=== PATIENT | male | born 1950 | race Caucasian/White ===

== ENCOUNTER 2017-01-24 08:35 | Emergency (ER) | payer OTHER ==
--- NOTE | ~2017-01-24 | CT2 ---
[facility] A Service [facility] RADIOLOGY TEXT RESULTS PATIENT: MATILDA METZ LOCATION: SED : 50 UNIT #: [id number] AGE: [address]: Ori Ortiz MD SEX: M ORDER DR: [id number] [place] [id number] E MR#: [id number] Acc #: [id number] NAME: MATILDA METZ : 1950 SEX: M STUDY DATE/TIME: 01/24/2017 11:17 UNIT: SED ROOM: STUDY DESCRIPTION: CT Abd and Pelv W Cont Attending Physician: Ori Ortiz M.D. Ordering Physician: Ori Ortiz M.D. Primary Care Physician: Primary Care Physician No MEDICAL IMAGING REPORT This report is preliminary unless electronic signature is present. EXAM CT abdomen and pelvis with contrast INDICATION Intermittent abdominal pain and nausea since 02:00 a.m. this morning. PROCEDURE Contrast-enhanced CT of the abdomen and pelvis. 100 mL of Isovue-370. COMPARISON None TECHNIQUE This CT exam was performed with one or more of the following radiation dose reduction techniques: automatic exposure control, adjustment of mA and/or kV according to patient size, and iterative reconstruction. FINDINGS ABDOMEN WITH CONTRAST: Included lung bases are clear. The liver is borderline enlarged at 19.6 cm. Spleen, pancreas unremarkable. There are a few gas containing stones in the gallbladder but no evidence for active inflammation by CT. There is a 10.0 mm indeterminate lesion in the lateral left yoj-wz-kmchh kidney. There is a 2.7 cm indeterminate right adrenal nodule. The bowel loops are nondilated. Appendix is normal. PELVIS WITH CONTRAST: No pelvic mass or fluid. No aggressive appearing bone lesion. IMPRESSION 1. No definite acute findings. 2. Borderline hepatomegaly. [facility] A Service [facility] RADIOLOGY TEXT RESULTS PATIENT: MATILDA METZ LOCATION: SED : 50 UNIT #: [id number] AGE: [address]: Ori Ortiz MD SEX: M ORDER DR: 3. Uncomplicated cholelithiasis by CT. If there is persistent clinical concern, right upper quadrant ultrasound may be helpful. 4. Indeterminate right adrenal nodule and left renal lesion. Recommend evaluation with either abdominal MRI or multiphase CT. If CT is pursued, adrenal protocol, as well as renal images should be performed. 5. Not mentioned above there is a fat-containing midline hernia in the upper abdomen that measures 6.9 cm in diameter with a neck of 1.7 cm. Dictated by... Branden Fan M.D. THIS IS AN ELECTRONICALLY VERIFIED REPORT Branden Fan M.D. at 01/25/2017 10:02 AM PAUL/andi TD: 01/24/2017 14:42 JOB #: [id number] MEDICAL IMAGING REPORT Page 1 of 1
[~2017-01-24 08:35] MED LIST: AMLODIPINE BESYL5 MG PO; BYSTOLIC10 MG PO; FISH OIL 1,0001 CAP PO; IBUPROFEN400 MG PO; IBUPROFEN800 MG PO; LIPITOR; LIPITOR PO; LISINOPRIL; LISINOPRIL PO; LOSARTAN-HCTZ1 EAC1 PO; MAXIDE; MAXZIDE-25 MG1 UDTAB; MEVACOR40 MG PO; OMEPRAZOLE20 M1 PO; PHENERGAN W/CO120 ML PO; TRICOR; TRICOR PO; ZITHROMAX PO
[2017-01-24 09:02] LABS: URINE SOURCE CLEAN CATCH
[2017-01-24 09:16] LABS: URINE APPEARANCE CLEAR; URINE BILIRUBIN NEG (NEG); URINE BLOOD TRACE-INTACT (NEG); URINE COLOR YELLOW; URINE GLUCOSE NEG (NORM); URINE KETONE NEG (NEG); URINE LEUKOCYTE ESTERASE NEG (NEG); URINE NITRATE NEG (NEG); URINE PROTEIN 1+ (NEG); URINE SPECIFIC GRAVITY 1.015 (1.003-1.035)
[2017-01-24 09:32] LABS: MICRO INDICATED? YES
[2017-01-24 10:03] LABS: CULTURE INDICATED? YES; URINE BACTERIA 1+ (NEG); URINE WBC 0-2 /[HPF] (0-5)
[2017-01-24 10:04] LABS: URINE SQUAMOUS EPITHELIAL CELL FEW /[HPF]
[2017-01-24 10:05] LABS: URINE MUCUS PRESENT
[2017-01-24 10:30] LABS: BASOPHIL# 0.1 X10e3 (0-0.3); BASOPHIL% 0.5 % (0-2.5); DIFF IND NO; EOSINOPHIL# 0.1 X10e3 (0-0.7); EOSINOPHIL% 0.6 % (0.0-7.0); HEMATOCRIT 42.4 % (38.0-50.0); LYMPHOCYTE# 1.2 X10e3 (1.0-3.5); LYMPHOCYTE% 7.5 % (17.0-45.0); MEAN CELL VOLUME 87.4 FL (83-96); MEAN CORPUSCULAR HGB CONC 33.1 g/dL (30-36); MEAN PLATELET VOLUME 8.1 FL (6.5-11.5); MONOCYTE# 1.1 X10e3 (0-1.0); MONOCYTE% 7.2 % (3.0-12.0); NEUTROPHIL# 12.9 X10e3 (1.5-7.1); NEUTROPHIL% 84.2 % (40-75); PLATELET COUNT 281 X10e3 (140-420); RED BLOOD COUNT 4.85 X10e (3.90-5.60); WHITE BLOOD COUNT 15.3 X10e3 (4.0-10.5)
[2017-01-24 10:47] LABS: ALBUMIN SERUM 3.7 g/dL (3.5-5.0); ALKALINE PHOSPHATASE 77 U/L (32-92); ALT (SGPT) 23 U/L (10-40); AMYLASE 24 U/L (0-46); AST (SGOT) 21 U/L (10-42); BILIRUBIN, DIRECT 0.1 mg/dL (0.0-0.2); BILIRUBIN,INDIRECT 0.3 mg/dL (0.0-0.9); BILIRUBIN,TOTAL 0.4 mg/dL (0.2-2.0); BLOOD UREA NITROGEN 16 mg/dL (9-23); BUN/CREATININE RATIO 22.85; CALCIUM SERUM 8.7 mg/dL (8.4-10.2); CARBON DIOXIDE 26 mmol/L (22-31); CHLORIDE 96 mmol/L (100-111); CREATININE SERUM 0.7 mg/dL (0.6-1.4); GLOM FILT RATE Estimated ABOVE60 mL/min (>60); GLUCOSE FASTING 145 mg/dL (70-110); LIPASE 24 U/L (22-51); PROTEIN TOTAL SERUM 7.3 g/dL (6.0-8.3); SODIUM 132 mmol/L (135-145)
== END 2017-01-24 12:22 | disposition home or self-care (01) ==
LOC: SED 08:35
PROVIDERS: Emergency Medicine
DX: E27.8 Other specified disorders of adrenal gland (principal); E78.5 Hyperlipidemia, unspecified; I10 Essential (primary) hypertension; Z79.899 Other long term (current) drug therapy
CPT/HCPCS: 36415; 74177; 80048; 80076; 81003; 82150; 83690; 85025; 87086; 96361; 96374; 99284; J2405; Q9967

== ENCOUNTER 2017-01-26 06:12 | Emergency (ER) | payer OTHER ==
--- NOTE | ~2017-01-26 | US67 ---
[facility] A Service of [facility] RADIOLOGY TEXT RESULTS PATIENT: MATILDA METZ LOCATION: [facility] : 50 UNIT #: [id number] AGE: [address]: Frank De Los Santos MD SEX: M ORDER DR: [id number] [facility] [address] [place], [place] [address] [id number] E MR#: [id number] Acc #: [id number] NAME: MATILDA METZ : 1950 SEX: M STUDY DATE/TIME: 01/26/2017 7:40 UNIT: [facility] ROOM: STUDY DESCRIPTION: US Gallbladder Attending Physician: Frank De Los Santos M.D. Ordering Physician: Ed Doctor [id number] [facility] Primary Care Physician: Primary Care Physician No MEDICAL IMAGING REPORT This report is preliminary unless electronic signature is present EXAM Gallbladder ultrasound 01/26/2017 INDICATIONS Abdominal pain 3 days. History of colon cancer with resection in 1195. Hypertension, hyperlipidemia. TECHNIQUE Sonographic imaging of the gallbladder was performed. Correlation is made with CT 01/24/2017. FINDINGS Pancreas obscured by bowel gas and not seen or evaluated. The liver echotexture is coarsened and liver measures 18 cm long axis. There is no ascites, focal liver mass or intrahepatic ductal dilatation. Probable at least mild fatty infiltration of the liver. Right kidney nonobstructed measuring 12.1 cm long axis. Extrahepatic common bile duct measures 5-6 mm, within the normal range. The gallbladder demonstrates cholelithiasis but no distinct wall thickening or pericholecystic fluid. No sonographic Lopez's sign was described by the technologist. Incidental lower pole renal cyst on the right measures 2.7 cm corresponding to a cyst in the lower pole right kidney on CT. IMPRESSION 1. Uncomplicated cholelithiasis. No intra or extrahepatic ductal dilatation. 2. Coarsened hepatic echotexture with imaging features suggestive of mild fatty infiltration. 3. Pancreas not visualized or assessed. 4. Incidental right renal cyst. Dictated by... Juan Finch M.D. [facility] A Service of [facility] RADIOLOGY TEXT RESULTS PATIENT: MATILDA METZ LOCATION: [facility] : [birth year] UNIT #: [id number] AGE: [address]: Frank De Los Santos MD SEX: M ORDER DR: THIS IS AN ELECTRONICALLY VERIFIED REPORT Juan Finch M.D. at 01/26/2017 3:13 PM Elizabeth TD: 01/26/2017 14:19 JOB #: [id number] MEDICAL IMAGING REPORT Page 1 of 1 COPY
[2017-01-26 06:03] LABS: BASOPHIL% 0.2 % (0-2.5); EOSINOPHIL% 0.4 % (0.0-7.0); HEMATOCRIT 39.5 % (38.0-50.0); LYMPHOCYTE# 1.5 X10e3 (1.0-3.5); LYMPHOCYTE% 11.4 % (17.0-45.0); MEAN CELL VOLUME 87.7 FL (83-96); MEAN CORPUSCULAR HEMOGLOBIN 28.8 PG (28-34); MEAN CORPUSCULAR HGB CONC 32.9 g/dL (30-36); MEAN PLATELET VOLUME 7.7 FL (6.5-11.5); MONOCYTE# 1.7 X10e3 (0-1.0); MONOCYTE% 12.4 % (3.0-12.0); NEUTROPHIL# 10.1 X10e3 (1.5-7.1); NEUTROPHIL% 75.6 % (40-75); PLATELET COUNT 257 X10e3 (140-420); RED CELL DISTRIBUTION WIDTH 15.3 % (11.0-15.5); WHITE BLOOD COUNT 13.4 X10e3 (4.0-10.5)
[2017-01-26 06:08] LABS: DIFF IND NO
[2017-01-26 06:32] LABS: ALBUMIN SERUM 3.6 g/dL (3.5-5.0); ALKALINE PHOSPHATASE 68 U/L (32-92); ALT (SGPT) 19 U/L (10-40); AMYLASE 15 U/L (0-46); AST (SGOT) 14 U/L (10-42); BILIRUBIN, DIRECT 0.2 mg/dL (0.0-0.2); BILIRUBIN,INDIRECT 1.2 mg/dL (0.0-0.9); BILIRUBIN,TOTAL 1.4 mg/dL (0.2-2.0); BLOOD UREA NITROGEN 15 mg/dL (9-23); BUN/CREATININE RATIO 18.75; CALCIUM SERUM 8.6 mg/dL (8.4-10.2); CARBON DIOXIDE 30 mmol/L (22-31); CHLORIDE 99 mmol/L (100-111); CREATININE SERUM 0.8 mg/dL (0.6-1.4); GLOM FILT RATE Estimated ABOVE60 mL/min (>60); GLUCOSE FASTING 111 mg/dL (70-110); LIPASE 17 U/L (22-51); POTASSIUM 3.2 mmol/L (3.5-5.1); PROTEIN TOTAL SERUM 7.3 g/dL (6.0-8.3); SODIUM 137 mmol/L (135-145)
[2017-01-26 07:11] LABS: URINE SOURCE CLEAN CATCH
[2017-01-26 07:23] LABS: URINE APPEARANCE CLEAR; URINE BILIRUBIN NEG (NEG); URINE BLOOD NEG (NEG); URINE COLOR YELLOW; URINE GLUCOSE NEG (NEG); URINE KETONE NEG (NEG); URINE LEUKOCYTE ESTERASE NEG (NEG); URINE NITRATE NEG (NEG); URINE PH 5.5 (5-8); URINE PROTEIN NEG (NEG); URINE SPECIFIC GRAVITY 1.024 (1.003-1.035)
[2017-01-26 07:29] LABS: CULTURE INDICATED? NO
== END 2017-01-26 10:25 | disposition home or self-care (01) ==
LOC: CED 06:12
PROVIDERS: Emergency Medicine
DX: K80.70 Calculus of gallbladder and bile duct without cholecystitis without obstruction (principal); I10 Essential (primary) hypertension; K21.9 Gastro-esophageal reflux disease without esophagitis; Z90.49 Acquired absence of other specified parts of digestive tract; Z88.5 Allergy status to narcotic agent
CPT/HCPCS: 36415; 76705; 80048; 80076; 81003; 82150; 83690; 85025; 96374; 96375; 99284; J1170; J2405